=== PATIENT | female | born 1930 | race Caucasian/White ===

== ENCOUNTER 2017-02-07 20:20 | Emergency (ER) | payer OTHER, BC ==
[~2017-02-07] VITALS: Ht 165.1 cm; Wt 74.8 kg
[~2017-02-07 20:20] MED LIST: ACETAMINOPHEN325 M1 OR; ACID CONTROLLER10 MG PO; ALDACTONE25 MG PO; ALLEGRA ALLERG180 MG PO; ALPRAZOLAM 0.0.25 M1 PO; AMLODIPINE BESY10 MG PO; ATIVAN1 MG PO; BENICAR HCT 201 EACH PO; CENTRUM TABLET1 TAB OR; COLACE100 MG OR; COUMADIN 2.5MG2.5 M1 OR; COUMADIN 2.5MG2.5 M1 PO; COUMADIN 5 MG TA5 M1 PO; CRESTOR20 MG PO; DOXEPIN 25 MG C25 M1 PO; LEVOXYL50 MCG PO; LOSARTAN-HCTZ1 EACH OR; LOSARTAN-HCTZ1 EACH PO; MECLIZINE HCL12.5 MG OR; MULTIVITAMINS1 EAC7 PO; NITROSTAT0.4 MG SL; NORVASC10 MG PO; OCUVITE SOFTGE1 EAC1 PO; OPTIVE EYE DROP30 ML OP; SPIRONOLACTONE25 M1 PO; THERA TEARS15 ML OP; TOPROL XL50 MG PO; ZETIA10 MG PO
[2017-02-07] MEDS ORDERED: LISINOPRIL10 MG PO (20:36)
[2017-02-07] MEDS ORDERED: COUMADIN7.5 MG PO (20:37)
[2017-02-07] MEDS ORDERED: CARBAMAZEPINE200 M2 PO (20:39)
[2017-02-07] MEDS ORDERED: NEURONTIN 300300 M1 PO (20:39)
== END 2017-02-07 21:54 | disposition home or self-care (01) ==
LOC: ER 20:20
DX: F41.9 Anxiety disorder, unspecified (principal); I10 Essential (primary) hypertension; E11.22 Type 2 diabetes mellitus with diabetic chronic kidney disease; I13.0 Hypertensive heart and chronic kidney disease with heart failure and stage 1 through stage 4 chronic kidney disease, or unspecified chronic kidney disease; N18.3 Chronic kidney disease, stage 3 (moderate); I50.9 Heart failure, unspecified; I48.91 Unspecified atrial fibrillation; Z85.3 Personal history of malignant neoplasm of breast; K21.9 Gastro-esophageal reflux disease without esophagitis; Z90.49 Acquired absence of other specified parts of digestive tract; Z90.710 Acquired absence of both cervix and uterus; E78.5 Hyperlipidemia, unspecified; E03.9 Hypothyroidism, unspecified; Z96.653 Presence of artificial knee joint, bilateral; Z88.8 Allergy status to other drugs, medicaments and biological substances

== ENCOUNTER → 2017-04-14 | Outpatient (CLI) | payer OTHER, BC ==
[~2017-04-14] MED LIST changes: +CARBAMAZEPINE200 M2 PO; +COUMADIN7.5 MG PO; +LISINOPRIL10 MG PO; +NEURONTIN 300300 M1 PO
== END ==
LOC: RAD 03:03
DX: Z12.31 Encounter for screening mammogram for malignant neoplasm of breast (principal)

== ENCOUNTER → 2018-04-15 | Outpatient (CLI) | payer OTHER, BC ==
[~2018-04-15] MED LIST changes: +ANTIVERT25 MG PO; +ARTIFICIAL TEA1 EACH OPHTHALMIC; +CARBAMAZEPINE100 M2 PO; +CEFUROXIME250 MG PO; +HYDROCHLOROTH12.5 M1 PO; +LUTEIN20 M1 PO; +METOPROLOL TART25 MG PO; -TOPROL XL50 MG PO; +TYLENOL325 MG PO
== END ==
LOC: RAD 01:47
DX: Z12.31 Encounter for screening mammogram for malignant neoplasm of breast (principal)

== ENCOUNTER 2019-01-26 11:50 | Inpatient (IN) | payer OTHER, BC ==
[~2019-01-26] VITALS: Ht 165.1 cm; Wt 81.6 kg
[2019-01-26 11:52] VITALS: BP 211/100
[2019-01-26 12:25] LABS: BASOPHILS 0.6 % (0.0-2.0); EOSINOPHILS 1.1 % (0.0-3.0); HEMATOCRIT 40.4 % (37.0-47.0); HEMOGLOBIN 14.1 gm/dL (12.0-15.0); MCH 31.3 pg (26.0-34.0); MCHC 34.9 g/dL (28.0-37.0); MCV 89.6 fL (80.0-100.0); MONOCYTES 6.2 % (1.0-8.0); PLATELET COUNT 149 thou/uL (150-400); POLYS 84.1 % (36.0-66.0); RDW 13.9 % (10.5-14.5)
[2019-01-26 12:35] LABS: ANION GAP 9 mmol/L (7-16); BUN 23 mg/dL (7-18); CALCIUM 9.5 mg/dL (8.5-10.1); CHLORIDE 93 mmol/L (98-107); CO2 30 mmol/L (21-32); CREATININE 0.8 mg/dL (0.6-1.0); GLUCOSE 121 mg/dL (74-106); POTASSIUM 3.7 mmol/L (3.5-5.1); SODIUM 132 mmol/L (136-145)
[2019-01-26] MEDS ORDERED: CRESTOR10 MG PO (12:35)
[2019-01-26] MEDS ORDERED: XARELTO20 MG PO (12:36)
[2019-01-26] MEDS ORDERED: CELEXA10 MG PO (12:36)
[2019-01-26] MEDS ORDERED: XANAX 0.25 MG0.25 MG PO (12:37)
[2019-01-26] MEDS ORDERED: MAXZIDE-25 MG1 EACH PO (12:37)
[2019-01-26 12:40] LABS: ALBUMIN 4.3 g/dL (3.4-5.0); SALICYLATE < 2.8 mg/dL (2.8-20.0); SGOT 24 U/L (15-37); SGPT 27 U/L (30-65); TOTAL BILIRUBIN 0.3 mg/dL (<0.1-1.0); TOTAL PROTEIN 7.8 g/dL (6.4-8.2)
[2019-01-26 12:44] LABS: URINE BILIRUBIN NEGATIVE (Negative); URINE BLOOD NEGATIVE (Negative); URINE CLARITY CLEAR; URINE COLOR YELLOW; URINE GLUCOSE-RANDOM* NEGATIVE (Negative); URINE KETONES NEGATIVE (Negative); URINE LEUKOCYTES NEGATIVE (Negative); URINE NITRITE NEGATIVE (Negative); URINE PROTEIN (DIPSTICK) 1+ (Negative); URINE UROBILINOGEN 0.2 E.U./dl (0.2-1.0)
[2019-01-26 12:59] LABS: BACTERIA None Seen /HPF (None Seen); CASTS None Seen /LPF (None Seen); CRYSTALS None Seen /LPF (None Seen); SQUAMOUS 0-3 Few /LPF (0-3); URINE RBC None Seen /HPF (0-2); URINE WBC 0-5 Rare /HPF (0-5)
[2019-01-26 13:01] LABS: AMP/METHAMP Negative (Negative); BARBITURATES Negative (Negative); BENZODIAZEPINES POSITIVE (Negative); COCAINE Negative (Negative); METHADONE Negative (Negative); OPIATES Negative (Negative); PCP Negative (Negative)
[2019-01-26 15:23] VITALS: BP 220/116
[2019-01-26 16:28] VITALS: BP 201/89
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
[2019-01-26 20:54] VITALS: BP 186/98
[2019-01-26 23:00] VITALS: BP 160/89
--- NOTE | 2019-01-26 23:56 | NUR ---
Patient pleasant and cooperative this shift. Patient denies any SI/HI/AH/VH. Patient reports feeling depressed. Patient was worried about her medication regimen at the start of the shift. Medications ordered by MD were reviewed with her. Patient stated that she was prescribed Celexa and Alprazolam and she was worried that is what caused her to feel and think fuzzy. Spoke with patient about alternate coping skills other than medications. Patient appreciative and open to education. Patient took medications whole without difficulty. BP 186/98 at start of shift. Hydralazine 10mg PRN provided. 1.5 hours after administration, BP 160/89. Patient interacting well with other staff and peers. Patient has been sleeping quietly in her room.
--- NOTE | 2019-01-27 04:47 | NUR ---
Patient up at approximately 4am. Patient reports feeling anxious, some tremors to hands observed. Patient walking from room to day room several times. Patient asked for ordered medications. Patient fixated on ordered medications, why she took them, what she said that she had to have. Patient was given current medication list, provided education on each medication. Spoke 1:1 with patient providing alternate coping mechanisms. Patient appeared calmer after ordered medications were reviewed and what the plan of the day was on the unit.
[2019-01-27 07:12] VITALS: BP 193/110
--- NOTE | 2019-01-27 10:35 | NUR ---
ASSUMED PATIENT CARE AT 0700 A.M. UP AND AMBULATING AT THAT TIME. HAS BEEN COOPERATIVE AND COMPLIANT. AFFECT, CALM, MOOD PLEASANT, NO BEHAVIORS AT THIS TIME. CONTINUE TO MONITOR.
[2019-01-27 19:33] VITALS: BP 169/93
--- NOTE | 2019-01-27 22:07 | NUR ---
Pt interacting with female peers in day room. Had hs snack. Requested and compliant with medications. No verbalizations regarding anxiety or depression. Blunted affect noted.
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
--- NOTE | 2019-01-28 04:19 | NUR ---
Pt awakened at 0400 requesting activities to keep her mind busy. Pt ambulated in the currie and then was provided paper and pencil to draw. Discussed watching TV at 0500.
[2019-01-28 05:19] VITALS: BP 140/80
--- NOTE | 2019-01-28 05:19 | NUR ---
Pt asked for bp to be checked. R arm sitting manual 140/80. Pt reported this is the lowest it has been since her arrival and it resembles her home reading. Pt stated she is concerned now that her bp will drop to fast and make her dizzy or fall.
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
[2019-01-28 07:45] VITALS: BP 179/106
--- NOTE | 2019-01-28 13:00 | NUR ---
CALM. COOPERATIVE. CONVERSANT.
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
--- NOTE | 2019-01-28 19:33 | NUR ---
Pt has allergy to clonidine discussed reaction with pt. She stated in her younger years when she had elevated bp she would go to the ED and get shots of clonidine every 2 to 3 months. Then she was started on po form and she developed a rash. Ma[place] contacted regarding allergy and pt receiving 2 doses. Medication will be held and day DR daniels is to address tomorrow.
[2019-01-28 19:38] VITALS: BP 149/73
--- NOTE | 2019-01-28 21:55 | NUR ---
Pt along with peers worked on puzzle in day room and had snack. Blunted affect, verbalized concern regarding peers disorientation to room. Pt requested use of tablet for music or [employer] game. Will have dayshift f/u regarding use of unit tablet. Compliant with medications. No verbalizations regarding self harm.
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
[2019-01-29 07:30] VITALS: BP 187/85
--- NOTE | 2019-01-29 09:49 | NUR ---
ASSUMED CARE AT 0715 TODAY. PT. AWAKE, DRESSED AND ON THE UNIT. SHE IS PLEASANT AND COOPERATIVE WITH STAFF. SHE CAME TO THE NURSES STATION AND ATTEMPTED TO CALL HER MANAGER WASTEWATER AT 0930. SHE WAS INFORMED HE PROBABLY WOULD BE PREACHING TODAY. SHE SAID SHE'D CALL HIS OFFICE AND LEAVE A MESSAGE. SHE DID SO. SHE ALSO C/O VERTIGO THIS MORNING. I ADVISED HER TO RELAX AND SIT DOWN IF SHE IS LIGHT HEADED.
[2019-01-29 19:50] VITALS: BP 159/68
--- NOTE | 2019-01-30 03:36 | NUR ---
Patient alert and oriented x4. Patient denies any SI/HI/AH/VH. Patient reports some anxiety and depression that comes and goes. Patient interacting well with staff and peers watching TV and putting together a puzzle. Patient ate PM snack and took medications well. Patient reports that she is trying to be less obsessive with her medication regimen and wants to allow the doctors to do their job, but it is hard. Patient has petechiae to bilateral lower extremities, will pass on in report to monitor. Resident has been up once through the night to wander the halls, look at the TV, look at the time, then went back to bed. Resident re-orientated at that time with success. Resident has otherwise appeared to have slept well at this time.
--- NOTE | 2019-01-30 09:00 | NUR ---
PT AWAKE IN GOOD SPIRITS. PT ATE BREAKFAST AND TOOK AM MEDS. PT EXCITED ABOUT GETTING HOME TODAY.
[2019-01-30] MEDS ORDERED: CARVEDILOL12.5 MG PO (09:31)
[2019-01-30] MEDS ORDERED: SEROQUEL 25 MG25 M1 PO (09:32)
--- NOTE | 2019-01-30 12:30 | NUR ---
GOING OVER MEDS THAT PT TAKES AT HOME. PT HAS A LIST OF MEDS THAT SHE HAD. WILL CLARIFY MEDS FOR DISCHARGE. TALKED TO DR. PITTMAN AND STATED ONLY BP MED FOR HERE AT THIS TIME IS WHAT IS ORDERED.
[2019-01-30 12:35] VITALS: BP 169/92
[2019-01-30 15:34] VITALS: BP 169/92
--- NOTE | 2019-01-30 15:35 | NUR ---
Patient Name: SHANNA POWELL Admission Date: 01/26/19 DISCHARGE PLAN: Pt will be discharge to her home. Care Assessment: Pt was assessed by Dr. Fuller, and was diagnosed with Severe Major Depression. Level II Assessment: None Transportation: Pt will be discharge by [facility] Special Instructions/Notes: schedule pt to [facility]. Pt has appointment on February 09, 2019. At 10:30am. DISCHARGE TO FACILITY: Facility: Phone: Fax: Address: Contact Name: Phone: PCP: [facility] Psychiatrist:
--- NOTE | 2019-01-30 16:00 | NUR ---
WENT OVER MED LIST AND PERSONAL BELONGINGS OVER WITH PATIENT. PT UNDERSTOOD D/C ORDERS. PT GETTING NEW MEDS FILLED AT PHARMACY IN HOUSE. PT LEAVING VIA CAB TO HOME.
--- NOTE | 2019-02-01 09:22 | D ---
[facility] [place] [address] DISCHARGE SUMMARY Name: LITTLE ORLEANSSHANNA Room #: 525B [facility] IN M.R.#: [id number] Admission: 01/26/19 ������������������ Attend Phys: Phi Fuller DO Discharge: 01/30/19 ������������������ Date of : 30 Report #: [id number] THIS REPORT FOR: //name// CC: Phi Frye DATE OF SERVICE: 01/30/2019 ATTENDING PHYSICIAN: Phi Fuller DO ACCOUNTING LECTURER: Phi Lai M.D. DISCHARGE DIAGNOSES: Unspecified depressive disorder, resolved. Anxiety disorder, unspecified secondary to psychiatric diagnoses; suicidal ideation, resolved; severe hypertension, much improved; congestive heart failure, compensated; history of atrial fibrillation; chronic kidney disease stage 3; diet controlled diabetic. DISCHARGE PLAN: Discharged home. Activity level as tolerated. No alcohol, no illicit drugs, no smoking. DISCHARGE MEDICATIONS: Coreg 12.5 mg p.o. b.i.d. with meals for hypertension and rate control, Seroquel 12.5 mg p.o. t.i.d. for anxiety at 0900, 1500 and 1700. Medications to continue levothyroxine 50 mcg p.o. daily, famotidine 20 mg p.o. for GERD and hypothyroidism. Carbamazepine 200 mg p.o. b.i.d. for trigeminal neuralgia, simvastatin 10 mg p.o. daily, rivaroxaban 20 mg p.o. daily with dinner, triamterene/hydrochlorothiazide hospitalist advised not to continue that, also citalopram was discontinued. REASON FOR ADMISSION: As follows, 88-year-old female presented to ED with suicidal ideation starting last night. She was started on a half dose of Celexa 1-1/2 weeks ago and apparently she became more suicidal on this. HOSPITAL COURSE: The patient was admitted to geriatric psychiatric unit and I decided discontinue Celexa, tapered her off alprazolam, started her on Seroquel. The patient improved. Recommended [facility] for her as [facility]. Labs and vital signs at time of admission CBC grossly normal except platelet count 149,000. Chemistries within normal limits. GFR is 68. Glucose 121, AST 24, ALT 27, alkaline phosphatase 101, total protein 7.8, albumin 4.3. TSH 0.663. Sodium was 132 on admission. UDS is positive for benzodiazepines. Alcohol was negative. Acetaminophen negative. Salicylate less than 2. Urinalysis showed 1+ protein, otherwise clean. [facility] [address] [place] [address] DISCHARGE SUMMARY Name: [facility] Room #: [facility] IN .R.#: [id number] Admission: 01/26/19 ������������������ Attend Phys: Phi Fuller, Discharge: 01/30/19 ������������������ Date of : 30 Report #: [id number] PHYSICAL EXAMINATION: VITAL SIGNS: On the day of discharge, temperature 36.5, pulse 54, respirations 18, BP 169/92. DISPOSITION: The patient will need a follow up with her photographic artist, Dr. Saxena within 2 weeks, she is aware of those. MENTAL STATUS EXAMINATION: Well-developed, well-nourished female appearing stated age. Attention limited. Concentration limited. Speech normal rate, rhythm and tone. Thought process linear and goal directed. Thought content focused on discharge. Mood and affect appear euthymic, broad range. Denied auditory or visual type hallucination. Not suicidal intent or plan. Denied hopelessness or helplessness. Denied homicidal intent or plan. Memory not formally tested today, SLUMS early in hospitalization. Insight limited. Judgment fair. Fund of knowledge at least average. Prognosis for this patient is fair. She is to maintain general, medical, psychiatric care. Maintain blood pressure control. ��������������������������������������������� <ELECTRONICALLY SIGNED> ���������������������������������������� By: Phi Fuller DO ��������������������������������������������� 02/01/19 0922 [id number] Phi Fuller, /nt
== END 2019-01-30 16:28 | disposition home or self-care (01) | DRG 885 ==
LOC: ER 11:50 → SBH 14:04 → EROBS 14:04 → SBH 14:04
PROVIDERS: Physician Assistant; ADMIT Psychiatry & Neurology Psychiatry
DX: F32.3 Major depressive disorder, single episode, severe with psychotic features (principal); R45.851 Suicidal ideations; I13.0 Hypertensive heart and chronic kidney disease with heart failure and stage 1 through stage 4 chronic kidney disease, or unspecified chronic kidney disease; I50.9 Heart failure, unspecified; I48.91 Unspecified atrial fibrillation; N18.3 Chronic kidney disease, stage 3 (moderate); E11.22 Type 2 diabetes mellitus with diabetic chronic kidney disease; K21.9 Gastro-esophageal reflux disease without esophagitis; F41.0 Panic disorder [episodic paroxysmal anxiety]; M79.7 Fibromyalgia; E78.00 Pure hypercholesterolemia, unspecified; I16.0 Hypertensive urgency; E03.9 Hypothyroidism, unspecified; Z96.653 Presence of artificial knee joint, bilateral; Z96.1 Presence of intraocular lens; Z87.828 Personal history of other (healed) physical injury and trauma; Z85.3 Personal history of malignant neoplasm of breast; Z95.810 Presence of automatic (implantable) cardiac defibrillator; Z90.49 Acquired absence of other specified parts of digestive tract; Z98.42 Cataract extraction status, left eye; Z98.41 Cataract extraction status, right eye; Z79.01 Long term (current) use of anticoagulants; Z79.899 Other long term (current) drug therapy; Z88.8 Allergy status to other drugs, medicaments and biological substances
CPT/HCPCS: 10880

== ENCOUNTER → 2019-07-07 | Outpatient (CLI) | payer OTHER, BC ==
[~2019-07-07] MED LIST changes: +CARVEDILOL12.5 MG PO; +CELEXA10 MG PO; +CRESTOR10 MG PO; +MAXZIDE-25 MG1 EACH PO; +SEROQUEL 25 MG25 M1 PO; +XANAX 0.25 MG0.25 MG PO; +XARELTO20 MG PO
== END ==
LOC: RAD 10:26
DX: Z12.31 Encounter for screening mammogram for malignant neoplasm of breast (principal)

== ENCOUNTER → 2019-12-19 | Outpatient (CLI) | payer OTHER, BC ==
[~2019-12-19] MED LIST changes: +AMOXICILLIN875 MG PO; +XARELTO10 MG PO
== END ==
LOC: SJCVC 13:31
PROVIDERS: ATTEND Internal Medicine Cardiovascular Disease
DX: R94.31 Abnormal electrocardiogram [ECG] [EKG] (principal); I48.21 Permanent atrial fibrillation; I25.10 Atherosclerotic heart disease of native coronary artery without angina pectoris; I10 Essential (primary) hypertension; D68.59 Other primary thrombophilia; I87.2 Venous insufficiency (chronic) (peripheral); I35.0 Nonrheumatic aortic (valve) stenosis; E78.00 Pure hypercholesterolemia, unspecified; E03.9 Hypothyroidism, unspecified; Z90.49 Acquired absence of other specified parts of digestive tract; Z90.710 Acquired absence of both cervix and uterus; Z79.899 Other long term (current) drug therapy

== ENCOUNTER 2020-03-16 07:22 | Emergency (ER) | payer OTHER, BC ==
[~2020-03-16] VITALS: Ht 165.1 cm; Wt 83.9 kg
--- NOTE | ~2020-03-16 | EMS ---
[address] [address] EMS Patient Care Report Name: SHANNA POWELL Room #: PRE M.R.#: [id number] Admission: Attend Phys: Discharge: Date of : 30 Report #: [id number] THIS REPORT FOR: //name// Report Transmitted: 03/16/2020 07:01 EMS Care Summary [place], [place]/[facility] Incident [id number] @ 03/16/2020 06:43 Incident Location [id number] [place] [address] Patient SHANNA SHERRY Female, 89 Years 1930 Patient Address [address] [place] [address] Patient History Congestive Heart Failure (CHF),Hypertension (HTN),Atrial Fibrillation, Patient Allergies No known allergies, Patient Medications Amlodipine, Xarelto, Meclizine, Carvedilol, Chief Complaint BLOODY NOSE Disposition Transported No Lights/[place] Dispatch Reason Hemorrhage/Laceration Transported To [facility] Narrative M42 WAS DISPATCHED AFTER BEING REQUEST BY P42 WHO WAS ON A MEDICAL ALARM. UPON ARRIVAL M42 MET P42 [facility]. P42 REPORTED PT WOKE UP AN HOUR PRIOR WITH A BLOODY NOSE AND IT HAD NOT STOPPED BLEEDING SINCE. PT WAS ON BLOOD [facility] [address] [place] [address] EMS Patient Care Report Name: SHANNA POWELL Room #: PRE Beck#: [id number] Admission: Attend Phys: Discharge: Date of : 30 Report #: [id number] YING. UPON INSPECTION PT LOOOKED LIKE THE BLEEDING WAS BEGINNING TO CLOT BUT WAS SYILL BLEEDING. PT WAS TOLD TO CONTINUE TO HOLD PRESSURE. PT DENIED ANY RECENT TRAUMA. PT DENIED PAIN OR WEAKNESS OF ANY KIND. PT WAS MOVED TO THE STRETCHER AND PLACED IN THE AMBULANCE. FURTHER ASSESSMENT REVEALED THE PT TO BE IN AFIB. PT WS HYPERTENSIVE. IV ACCES WAS GRANTED. PT INFORMED EMS SHE HAD NOT EATEN OR DRANK ANYTHING YET THIS MORNING AND HAD NOT TAKEN ANY OF HER MEDICATIONS SINCE 6 PM THE NIGHT BEFORE. PT WAS TRANSPORTED WHILE SHE HELD PRESSURE AND MONITORED ENROUTE. PT WAS TRANSFERRED TO HOSPITAL STAFF WITH A REPORT. EMS RETURNED TO SERVICE. Initial Vitals @06:56P: 90,R: 16,BP: 217/127,Pain: 0/10,GCS: 15,Glucose: 129,SpO2: 91,Revised Trauma: 12, @07:03P: 80,R: 16,BP: 214/134,Pain: 0/10,GCS: 15,SpO2: 86,Revised Trauma: 12,DE Suspected: false @07:01P: 89,R: 16,Pain: 0/10,GCS: 15,SpO2: 88,DE Suspected: false Assessments @06:50MENTAL:Person Oriented,Time Oriented,Event Oriented,Place Oriented,SKIN:HEENT:Head/Face: Other,Eyes: No Abnormalities,Neck/Airway: No Abnormalities,LUNG SOUNDS:General: No Abnormalities,Left Upper: No Abnormalities,Right Upper: No Abnormalities,Left Lower: No Abnormalities,Right Lower: No Abnormalities,ABDOMEN:General: No Abnormalities,Left Upper: No Abnormalities,Right Upper: No Abnormalities,Left Lower: No Abnormalities,Right Lower: No Abnormalities,PELVIS//GI:No Abnormalities,EXTREMITIES:Left Arm: No Abnormalities,Right Arm: No Abnormalities,Left Leg: No Abnormalities,Right Leg: No Abnormalities,PULSE:Radial: 2+ Normal,NEURO:No Abnormalities, Impression Hemorrhage Procedures @06:50ALS AssessmentResponse: UnchangedSucceeded@07:0112-Lead ECGResponse: UnchangedSucceeded@07:02Saline Lock 5cc (18 ga) Site: Antecubital-RightResponse: UnchangedSucceeded Timeline 06:32,Call Received 06:32,Dispatch Notified 06:43,Dispatched 06:44,En Route 06:47,On Scene 06:50,At Patient 06:50,ALS Assessment,Response: UnchangedSucceeded, 06:56,BP: 217/127 M,PULSE: 90,RR: 16 R,SPO2: 91 Ox,ETCO2: ,B,PAIN: 0,GCS: 15, [address] [address] EMS Patient Care Report Name: [facility] Room #: PRE ER M.R.#: [id number] Admission: Attend Phys: Discharge: Date of : 30 Report #: [id number] 07:01,12-Lead ECG,Response: UnchangedSucceeded, 07:01,BP: / M,PULSE: 89,RR: 16 R,SPO2: 88 Ox,ETCO2: ,BG: ,PAIN: 0,GCS: 15, 07:02,Saline Lock 5cc 18 ga Site: Antecubital-Right,Response: UnchangedSucceeded, 07:03,BP: 214/134 M,PULSE: 80,RR: 16 R,SPO2: 86 Ox,ETCO2: ,BG: ,PAIN: 0,GCS: 15, 07:08,Depart Scene 07:18,At Destination 07:33,Call Closed Disclaimer v1.1 Copyright 2020 [facility] This EMS Care Summary contains data elements from the applicable legal record (which may be displayed differently). It is designed to provide pertinent information for the following purposes: continuity of care, clinical quality, and state data reporting. The complete legal record is available to ED staff and administrators of the receiving hospital in [employer]'s Patient Tracker. All data is provided "as is."
[~2020-03-16 07:22] MED LIST changes: -AMOXICILLIN875 MG PO; -XARELTO10 MG PO
[2020-03-16 07:56] LABS: HEMATOCRIT 37.6 % (37.0-47.0); HEMOGLOBIN 12.5 gm/dL (12.0-15.0); MCH 30.5 pg (26.0-34.0); MCHC 33.2 g/dL (28.0-37.0); MCV 91.9 fL (80.0-100.0); RBC 4.1 mil/uL (4.20-5.00); RDW 13.8 % (10.5-14.5); WBC 4.7 thou/uL (4.0-11.0)
[2020-03-16 08:18] LABS: INR 1.2; PROTIME 12.7 Seconds (9.3-11.4)
[2020-03-16] MEDS ORDERED: AMOXICILLIN875 MG PO ×2 (09:23→12:27)
[2020-03-16 09:50] VITALS: BP 151/84
[2020-03-17] MEDS ORDERED: XARELTO10 MG PO (22:26)
== END 2020-03-16 09:50 | disposition home or self-care (01) ==
LOC: ER 07:22
PROVIDERS: Emergency Medicine
DX: R04.0 Epistaxis (principal); E11.22 Type 2 diabetes mellitus with diabetic chronic kidney disease; I13.0 Hypertensive heart and chronic kidney disease with heart failure and stage 1 through stage 4 chronic kidney disease, or unspecified chronic kidney disease; N18.3 Chronic kidney disease, stage 3 (moderate); I50.9 Heart failure, unspecified; I48.91 Unspecified atrial fibrillation; M79.7 Fibromyalgia; E78.00 Pure hypercholesterolemia, unspecified; E03.9 Hypothyroidism, unspecified; Z96.651 Presence of right artificial knee joint; Z96.652 Presence of left artificial knee joint; Z85.3 Personal history of malignant neoplasm of breast; Z90.49 Acquired absence of other specified parts of digestive tract; Z79.899 Other long term (current) drug therapy; Z88.8 Allergy status to other drugs, medicaments and biological substances; Z79.01 Long term (current) use of anticoagulants

== ENCOUNTER 2020-03-17 20:57 | Emergency (ER) | payer OTHER, BC ==
[~2020-03-17] VITALS: Ht 154.9 cm; Wt 83.9 kg
[~2020-03-17 20:57] MED LIST changes: +AMOXICILLIN875 MG PO
[2020-03-17] MEDS ORDERED: XARELTO10 MG PO (22:26)
[2020-03-17 23:44] VITALS: BP 175/85
== END 2020-03-17 23:47 | disposition home or self-care (01) ==
LOC: ER 20:57
DX: R04.0 Epistaxis (principal); I48.91 Unspecified atrial fibrillation; E78.5 Hyperlipidemia, unspecified; E03.9 Hypothyroidism, unspecified; I13.0 Hypertensive heart and chronic kidney disease with heart failure and stage 1 through stage 4 chronic kidney disease, or unspecified chronic kidney disease; N18.3 Chronic kidney disease, stage 3 (moderate); I50.9 Heart failure, unspecified; Z90.710 Acquired absence of both cervix and uterus; Z87.891 Personal history of nicotine dependence; Z79.899 Other long term (current) drug therapy; Z79.2 Long term (current) use of antibiotics; Z88.8 Allergy status to other drugs, medicaments and biological substances

== ENCOUNTER 2020-07-09 10:27 | Inpatient (IN) | payer OTHER, BC ==
[~2020-07-09] VITALS: Ht 165.1 cm; Wt 82.6 kg
[2020-07-09] VITALS (7 sets, daily range): BP systolic 176–220; BP diastolic 77–109
[~2020-07-09 10:27] MED LIST changes: +XARELTO10 MG PO
[2020-07-09 10:56] LABS: ABSOLUTE NEUTROPHILS 6.1 thou/uL (1.4-8.2); BASOPHILS 0.4 % (0.0-2.0); EOSINOPHILS 1.4 % (0.0-3.0); HEMATOCRIT 36.6 % (37.0-47.0); HEMOGLOBIN 12.1 gm/dL (12.0-15.0); LYMPHOCYTES 8.3 % (24.0-44.0); MCH 28.9 pg (26.0-34.0); MCV 87.6 fL (80.0-100.0); MONOCYTES 4.5 % (1.0-8.0); PLATELET COUNT 157 thou/uL (150-400); POLYS 85.4 % (36.0-66.0); RBC 4.18 mil/uL (4.20-5.00); RDW 15.2 % (10.5-14.5); WBC 7.1 thou/uL (4.0-11.0)
--- NOTE | 2020-07-09 10:57 | EKG ---
[facility] [place] [address] [place] [address] ELECTROCARDIOGRAM REPORT Name: DALILA POWELLRED Room #: PRE M.R.#: [id number] Admission: Attend Phys: Discharge: Date of : 30 Report #: [id number] THIS REPORT FOR: cc: Travis Frye MD, Eric K. MD Santiago, Patrick MD [facility] ~ THIS REPORT FOR: //name// [facility] ED Test Date: 2020-07-09 Test Time: 10:51:30 Pat Name: SHANNA POWELL Department: Room: Gender: F Lead Applications Developer: vance : 1930 Requested By: Curly Fairchild Order Number: [id number] MD: Flaco Oseguera Measurements Intervals Oden Rate: 71 P: FL: QRS: -34 QRSD: 108 T: -14 QT: 494 QTc: 537 Interpretive Statements Atrial fibrillation Left axis deviation Anteroseptal infarct, age indeterminate Compared to ECG 12/29/2017 14:43:12 Poor R-wave progression no longer present ST (T wave) deviation no longer present Electronically Signed On 07-09-2020 10:57:40 CDT by Flaco Oseguera [email or web address] <ELECTRONICALLY SIGNED> By: Flaco Oseguera MD, FACC 07/09/20 1057 [id number] Flaco Oseguera MD, [facility] /EPI
[2020-07-09 11:20] LABS: ANION GAP 4 mmol/L (7-16); BUN 20 mg/dL (7-18); CALCIUM 8.8 mg/dL (8.5-10.1); CHLORIDE 95 mmol/L (98-107); CO2 36 mmol/L (21-32); CREATININE 1.1 mg/dL (0.6-1.0); GLUCOSE 166 mg/dL (74-106); MAGNESIUM 1.5 mg/dL (1.8-2.4); SGOT 31 U/L (15-37); SGPT 28 U/L (30-65); SODIUM 135 mmol/L (136-145); TOTAL BILIRUBIN 0.5 mg/dL (0.2-1.0); TROPONIN-I <0.06 ng/mL (<0.06)
[2020-07-09 11:23] LABS: POTASSIUM 2.3 mmol/L (3.5-5.1)
[2020-07-09 11:38] LABS: URINE BILIRUBIN NEGATIVE (Negative); URINE BLOOD NEGATIVE (Negative); URINE CLARITY CLEAR; URINE COLOR YELLOW; URINE GLUCOSE-RANDOM* NEGATIVE (Negative); URINE KETONES NEGATIVE (Negative); URINE LEUKOCYTES-REFLEX NEGATIVE (Negative); URINE NITRITE-REFLEX NEGATIVE (Negative); URINE PROTEIN (DIPSTICK) TRACE (Negative); URINE SPECIFIC GRAVITY 1.015 (1.005-1.035); URINE UROBILINOGEN 0.2 E.U./dl (0.2-1.0)
[2020-07-09] MEDS ORDERED: NEURONTIN300 MG PO (11:56)
[2020-07-09] MEDS ORDERED: EYE HEALTH ADU1 EACH PO (11:57)
[2020-07-09] MEDS ORDERED: ACIDOPHILUS CA1 EACH PO (11:57)
[2020-07-09] MEDS ORDERED: MULTI FOR HER1 EAC2 PO (11:57)
[2020-07-09] MEDS ORDERED: EDARBYCLOR 40-1 EAC1 PO (11:58)
[2020-07-09] MEDS ORDERED: CLONAZEPAM 0.50.5 M1 PO (11:58)
[2020-07-09] MEDS ORDERED: MAPAP500 MG PO (11:59)
[2020-07-09] MEDS ORDERED: CARVEDILOL12.5 MG PO (12:24)
[2020-07-09] MEDS ORDERED: MECLIZINE HCL25 M1 PO (12:25)
[2020-07-09 13:00] LABS: ALBUMIN 4.1 g/dL (3.4-5.0); TOTAL PROTEIN 7.5 g/dL (6.4-8.2)
[2020-07-09 13:26] LABS: TSH 0.272 uIU/mL (0.358-3.740)
[2020-07-10 00:34] VITALS: BP 145/82
[2020-07-10 04:05] VITALS: BP 162/74
--- NOTE | 2020-07-10 05:48 | NUR ---
ASSUMED CARE FROM DAY SHIFT PT ALERT AND ORIENTED X4 , ASSISTED TO BATHROOM , TOLERATED WELL DIZZINESS COMES AND GOES STATED BY PATIENT. BP STABLE, C/O NECK PAIN DURING THE NIGHT , TYLENOL GIVEN. PT RESTED THE REST OF THE NIGHT UP IN CHAIR. WILL CONITNUE WITH CURRENT PLAN OF CARE AND WILL REPORT CHANGES.
[2020-07-10 06:02] LABS: HEMATOCRIT 33.1 % (37.0-47.0); HEMOGLOBIN 11.1 gm/dL (12.0-15.0); MCH 29.4 pg (26.0-34.0); MCHC 33.4 g/dL (28.0-37.0); MCV 87.8 fL (80.0-100.0); RBC 3.77 mil/uL (4.20-5.00); RDW 15.2 % (10.5-14.5); WBC 5.7 thou/uL (4.0-11.0)
[2020-07-10 06:27] LABS: CALCIUM 8.6 mg/dL (8.5-10.1); CREATININE 0.9 mg/dL (0.6-1.0); MAGNESIUM 1.7 mg/dL (1.8-2.4)
[2020-07-10 06:57] LABS: POTASSIUM 2.5 mmol/L (3.5-5.1)
--- NOTE | 2020-07-10 07:41 | EKG ---
[facility] [place] [address] [place] [address] ELECTROCARDIOGRAM REPORT Name: DALILA POWELLRED Room #: 214-P ADM IN M.R.#: [id number] Admission: 07/09/20 Attend Phys: Denver Giles MD Discharge: Date of : 30 Report #: [id number] THIS REPORT FOR: cc: Travis Frye MD, Eric K. MD Lundgren,Sean Mak MD [facility] ~ THIS REPORT FOR: //name// [facility] ED Test Date: 2020-07-09 Test Time: 12:04:53 Pat Name: SHANNA POWELL Department: Room: 214 Gender: F Roll Filler: MITESH : 1930 Requested By: Curly Fairchild Order Number: [id number] MD: Sean Cruz Measurements Intervals [place] Rate: 64 P: RI: QRS: -40 QRSD: 106 T: 2 QT: 496 QTc: 512 Interpretive Statements Atrial fibrillation Left axis deviation Poor R wave progression Prolonged QT interval Compared to ECG 07/09/2020 10:51:30 No significant change was found Electronically Signed On 07-10-2020 7:41:09 CDT by Sean Cruz [email or web address] <ELECTRONICALLY SIGNED> By: eSan Cruz MD, [facility] 07/10/20 0741 1204 1204 Sean Cruz MD, [facility] /EPI
[2020-07-10 07:58] VITALS: BP 192/113
--- NOTE | 2020-07-10 09:06 | 2DMMODE ---
[facility] [place] [address] 2 D/M-MODE ECHOCARDIOGRAM Name: DALILA POWELLRED Room #: 214-P ADM IN M.R.#: [id number] Admission: 07/09/20 Attend Phys: Denver Giles MD Discharge: Date of : 30 Report #: [id number] THIS REPORT FOR: cc: Travis Frye MD, Eric K. MD Santiago, Patrick MD [facility] ~ APPROVED REPORT Study performed: 07/10/2020 08:03:49 EXAM: Comprehensive 2D, Doppler, and color-flow Echocardiogram Patient Location: Bedside Room #: 214 Status: routine BSA: 1.89 HR: 68 bpm BP: 191/113 mmHg Rhythm: Atrial Fibrillation Other Information Study Quality: Good Indications Afib with RVR, congestion. HTN urgency. Hx: Afib, HTN, HLP. 2D Dimensions RVDd: 41.25 mm IVSd: 14.41 (7-11mm) LVOT Diam: 20.35 (18-24mm) LVDd: 45.73 mm PWd: 13.08 (7-11mm) Ascending Ao: 33.37 (22-36mm) LVDs: 29.70 (25-40mm) Aortic Root: 39.25 mm Volumes Left Atrial Volume (Systole) Single Plane 4CH: 107.68 mL Single Plane 2CH: 96.74 mL LA ESV Index: 57.00 mL/m2 Aortic Valve AoV Peak Cm.: 2.03 m/s AO Peak Gr.: 8.77 mmHg LVOT Max P.56 mmHg AO Mean Gr.: 9.06 mmHg AO V2 Mean: 1.44 m/s LVOT Max V: 0.79 m/s [facility] [address] [place] [address] 2 D/M-MODE ECHOCARDIOGRAM Name: [facility] Room #: [address] [place] [address] [place] [facility]#: [id number] Admission: 07/09/20 Attend Phys: Denver Giles, Discharge: Date of : 30 Report #: [id number] AO V2 VTI: 49.16 cm BRIEN Vmax: 1.26 cm2 Mitral Valve MV Decel. Time: 145.18 ms MV E Max Cm.: 1.17 m/s Pulmonary Valve PV Peak Cm.: 0.70 m/s PV Peak Gr.: 1.98 mmHg Tricuspid Valve TR Peak Cm.: 4.10 m/s RAP Estimate: 15.00 mmHg TR Peak Gr.: 67.00 mmHg PA Pressure: 82.00 mmHg Left Ventricle The left ventricle is normal size. There is normal LV segmental wall motion. Mild concentric left ventricular hypertrophy. Left ventricular systolic function is normal. LVEF is 55%. This study is not technically sufficient to allow evaluation of the LV diastolic function due to atrial fibrillation. Right Ventricle Right ventricle is mildly dilated. Right ventricle is mildly hypokinetic. Atria Severe biatrial enlargement. Aortic Valve Aortic valve leaflets are thickened and calcified. No aortic regurgitation is present. There is mild valvular aortic stenosis. Calculated aortic valve area is 1.5 cm2 with maximum pressure gradient of 17 mmHg and mean pressure gradient of 9 mmHg. Mitral Valve Mitral valve leaflets are mildly thickened. Moderate mitral regurgitation. Tricuspid Valve The tricuspid valve is normal in structure. Moderate to severe tricuspid regurgitation. Estimated PAP is 75-80mmHg. Pulmonic Valve Pulmonic valve is not well visualized. Mild pulmonic regurgitation. [facility] [address] [place] [address] 2 D/M-MODE ECHOCARDIOGRAM Name: [facility] Room #: 214-P [facility] IN .R.#: [id number] Admission: 07/09/20 Attend Phys: Denver Giles, Discharge: Date of : 30 Report #: [id number] Great Vessels Aortic root is mildly dilated. (3.9cm) The ascending aorta is normal in size. IVC is dilated and collapses <50% with inspiration. Pericardium Small pericardial effusion. 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
[2020-07-10 11:37] LABS: CALCIUM 9.3 mg/dL (8.5-10.1); CREATININE 0.8 mg/dL (0.6-1.0)
[2020-07-10 11:44] VITALS: BP 176/99
[2020-07-10 16:17] VITALS: BP 140/70
--- NOTE | 2020-07-10 17:33 | NUR ---
Met with patient who resides in [facility]. She needs a new walker. requested provider plus issue one at [facility]. She has a friend who assists with groceries delivery. She reports independent with adls and self care. She does not believe she needs care. She reports she spends hours outside gardening. PCP Dr Jan Frye.
--- NOTE | 2020-07-10 19:39 | NUR ---
ASSUMED CARE AT SHIFT CHANGE, ALERT AND ORIENTED X4 AND FORGETFUL. BP ELEVATED THROUGH THE DAY AND MEDS ADJUSTED BY DR SPRING. K+ REPLACED PER ORDERS AND RECHECKED PER PROTOCOL. ANXIOUS AND SHE WAS MEDICATED, PATIENT CALMER AND REPORTED LESS ANXIETY. WILL CONTIUE TO MONITOR BP AND FOLLOW POC.
[2020-07-10 20:15] VITALS: BP 181/101
[2020-07-11 03:30] VITALS: BP 120/65
[2020-07-11 05:56] LABS: HEMOGLOBIN 11.9 gm/dL (12.0-15.0); MCHC 33.1 g/dL (28.0-37.0); MCV 87.7 fL (80.0-100.0); RBC 4.11 mil/uL (4.20-5.00); RDW 15.6 % (10.5-14.5); WBC 7.2 thou/uL (4.0-11.0)
[2020-07-11 06:04] LABS: CALCIUM 9.1 mg/dL (8.5-10.1); CREATININE 0.9 mg/dL (0.6-1.0); MAGNESIUM 1.5 mg/dL (1.8-2.4)
[2020-07-11 06:08] LABS: POTASSIUM 2.5 mmol/L (3.5-5.1)
[2020-07-11 07:30] VITALS: BP 151/78
[2020-07-11 12:00] VITALS: BP 130/63
[2020-07-11 13:54] VITALS: BP 130/63
--- NOTE | 2020-07-11 13:55 | NUR ---
Pt dcing home this afternoon once K+ replaced. Cab voucher provided as the pt does not have a ride. Rwalker ordered and issued to the pt per [facility] [employer] liason for home use. Script given to the liason. No other dc planning needs indicated.
[2020-07-11 16:30] VITALS: BP 136/52
--- NOTE | 2020-07-11 18:12 | NUR ---
ASSUMED CARE AT SHIFT CHANGE, ASSESSMENT DOCUMENTED, AFIB AND BARYCADIAC WHEN SLEEP AND OTHER VSS. K+ AND LORENA REPLACED. SLEPT IN THE CHAIR MOST OF DAY. PROGRESSING TO WARDS GOALS AND WILL CONTINUE WITH POC.
[2020-07-11 20:30] VITALS: BP 144/60
--- NOTE | 2020-07-12 04:16 | NUR ---
ASSESSMENT DOCUMENTED.PT BEEN RESTING IN NO ACUTE DISTRESS.A/OX4.VSS.PT DENIES ANY NEEDS.ANTICIPATING DISCHARGE TO HOME TODAY.WILL CONT TO MONITOR PER POC.
[2020-07-12 04:45] VITALS: BP 135/49
[2020-07-12 06:02] LABS: CALCIUM 8.5 mg/dL (8.5-10.1); CREATININE 1.1 mg/dL (0.6-1.0); MAGNESIUM 1.9 mg/dL (1.8-2.4); POTASSIUM 3.4 mmol/L (3.5-5.1)
[2020-07-12 06:04] LABS: HEMATOCRIT 32.9 % (37.0-47.0); HEMOGLOBIN 10.9 gm/dL (12.0-15.0); MCH 29.2 pg (26.0-34.0); MCV 88.5 fL (80.0-100.0); RBC 3.72 mil/uL (4.20-5.00); RDW 15.7 % (10.5-14.5); WBC 4.7 thou/uL (4.0-11.0)
[2020-07-12] MEDS ORDERED: K-DUR 20 MEQ T20 MEQ PO (07:58)
[2020-07-12] MEDS ORDERED: NORVASC5 MG PO (07:58)
[2020-07-12] MEDS ORDERED: XARELTO15 MG PO (07:58)
[2020-07-12] MEDS ORDERED: SPIRONOLACTONE100 M1 PO (07:58)
[2020-07-12 08:15] VITALS: BP 177/82
[2020-07-12 12:00] VITALS: BP 154/58
--- NOTE | 2020-07-12 14:22 | NUR ---
ASSESSMENT CHARTED. PT ALERT AND ORIENTED. DENIED HAVING PAIN OR DISCOMFORT. SEEN BY DR. NEWMAN. ORDERS GIVEN TO DISCHARGE PT TO HOME. DISCHARGE INSTRUCTIONS GIVEN TO PT. PT VERBERLISED UNDERSTANDING.
--- NOTE | 2020-07-17 15:58 | NUR ---
Call rec'd from Katya at Dr. Frye's office requesting dc summary and clarification on if we had arranged hh at mt. DC summary faxed to their office at [phone]. No hh setup or ordered at mt. Katya indicates that the pt is agreeable and they will arrange for RN/PT evals per Bjorn BRAGG.
--- NOTE | 2020-07-24 12:04 | HC ---
[facility] [place] [address] [place] [address] CONSULTATION Name: DALILA POWELLRED Room #: [address] [place] [address] [place] M.R.#: [id number] Admission: 07/09/20 Attend Phys: Denver Giles MD Discharge: 07/12/20 Date of : 30 Report #: [id number] THIS REPORT FOR: cc: Travis Frye MD, Eric K. MD Khosla, Parveen K. MD ~ CC: Travis Giles DATE OF SERVICE: 07/09/2020 HISTORY OF PRESENT ILLNESS: This 89-year-old female patient who was evaluated by me for determining any neurological etiology for any dizziness. The patient says that she had trigeminal neuralgia for a long period of time. She was in the process of switching her medication from gabapentin to Tegretol. She has taken Tegretol in the past, but then she was switched to gabapentin and then she is being switched back to Tegretol. She saw a neurosurgeon, Dr. Dickinson a long time ago and he wanted to do surgery on that and the patient refused surgery. She has been handling it reasonably well. She also gave a history of neuropathy, but I do not know how established the diagnosis is. REVIEW OF SYSTEMS: A 14-point review of system was carried out. This patient has a history of hypertension. The medications, she has not been taking it properly. She is on anticoagulation and she also missed a dose of that. She does have a longstanding history of atrial fibrillation. In fact, she has been seen by Cardiology during this admission. A 14-point review of system was carried out and it is positive as described above. PAST MEDICAL HISTORY: Positive for trigeminal neuralgia. FAMILY HISTORY: Unremarkable. SOCIAL HISTORY: She does not drink alcohol or smoke. REVIEW OF SYSTEMS; Also positive for a lumpectomy and a closed head injury in the past, chronic kidney disease, vertigo, angioplasty, bilateral cataracts, and bilateral knee replacement. PHYSICAL EXAMINATION: Indicates she is alert. She is responsive. She is able to follow simple command. She is oriented. Her speech looks intact. Cranial nerve examination 2-12 was unremarkable. She moves all 4 extremities well and strength looks unremarkable. Her position sense was intact on both sides. Reflexes were symmetrical. She did fairly well with elfimb-ta-qelc. I could not look at the patient's fundus. There is no meningeal sign. Blood pressure is 177/95, respirations 18, pulse is 66, temperature is 98.2. Cardiac examination is positive for atrial fibrillation. No respiratory difficulty. [facility] [address] [place] [address] CONSULTATION Name: [facility] Room #: [facility] IN .R.#: [id number] Admission: 07/09/20 Attend Phys: Denver Giles MD Discharge: 07/12/20 Date of : 30 Report #: [id number] She has no edema. Pulses are somewhat difficult to feel. She is a well-built individual. She does not have any hearing or issues with vision. She does not have any thyroid mass. LABORATORY DATA: Her white count is 7.1. Her potassium is only 2.3. Her kidney function indicated GFR low. Her TSH is also low, but B12 is normal. She had an MRI of the brain, MRA of the head and a carotid Doppler and CT scan. They were all reviewed and they were all unremarkable. IMPRESSION: It is unlikely that there is any neurological etiologies for the patient's dizziness or generalized weakness. I will suggest continuing to work up for systemic causes. Tegretol can cause some dizziness and fatigue, but she has taken it in the past and she does not feel that is the cause for it and she can address that with her primary. She should have some further workup and that workup should include the workup for neuropathy to establish the diagnosis with more certainty, but that needs to be done as an outpatient. Neurologically, I do not have much to add and I will sign off and please call if there is any question about this patient. <ELECTRONICALLY SIGNED> By: Kel Biswas MD 07/24/20 1204 1735 0202 Kel Biswas MD /nt
== END 2020-07-12 14:29 | disposition home or self-care (01) | DRG 291 ==
LOC: ER 10:27 → 2N 14:01 → EROBS 14:01 → 2N 14:10
PROVIDERS: Emergency Medicine; ADMIT Internal Medicine; ATTEND Internal Medicine
DX: I13.0 Hypertensive heart and chronic kidney disease with heart failure and stage 1 through stage 4 chronic kidney disease, or unspecified chronic kidney disease (principal); I50.31 Acute diastolic (congestive) heart failure; I48.21 Permanent atrial fibrillation; J98.11 Atelectasis; I16.0 Hypertensive urgency; E87.6 Hypokalemia; G50.0 Trigeminal neuralgia; I48.91 Unspecified atrial fibrillation; N18.30 Chronic kidney disease, stage 3 unspecified; K21.9 Gastro-esophageal reflux disease without esophagitis; Z96.653 Presence of artificial knee joint, bilateral; E78.00 Pure hypercholesterolemia, unspecified; E03.9 Hypothyroidism, unspecified; E11.22 Type 2 diabetes mellitus with diabetic chronic kidney disease; I25.10 Atherosclerotic heart disease of native coronary artery without angina pectoris; I87.2 Venous insufficiency (chronic) (peripheral); I35.0 Nonrheumatic aortic (valve) stenosis; E11.42 Type 2 diabetes mellitus with diabetic polyneuropathy; E78.5 Hyperlipidemia, unspecified; E83.42 Hypomagnesemia; Z66 Do not resuscitate; F41.9 Anxiety disorder, unspecified; M62.84 Sarcopenia; N39.41 Urge incontinence; K59.00 Constipation, unspecified; I27.20 Pulmonary hypertension, unspecified; I07.1 Rheumatic tricuspid insufficiency; Z79.01 Long term (current) use of anticoagulants; Z85.3 Personal history of malignant neoplasm of breast; Z90.49 Acquired absence of other specified parts of digestive tract; Z88.8 Allergy status to other drugs, medicaments and biological substances; Z98.42 Cataract extraction status, left eye; Z98.41 Cataract extraction status, right eye; Z90.710 Acquired absence of both cervix and uterus
CPT/HCPCS: 10081

== ENCOUNTER → 2020-07-19 | Outpatient (CLI) | payer OTHER, BC ==
[~2020-07-19] MED LIST changes: +ACIDOPHILUS CA1 EACH PO; +CLONAZEPAM 0.50.5 M1 PO; +EDARBYCLOR 40-1 EAC1 PO; +EYE HEALTH ADU1 EACH PO; +K-DUR 20 MEQ T20 MEQ PO; +MAPAP500 MG PO; +MECLIZINE HCL25 M1 PO; +MULTI FOR HER1 EAC2 PO; +NEURONTIN300 MG PO; +NORVASC5 MG PO; +SPIRONOLACTONE100 M1 PO; +XARELTO15 MG PO
== END ==
LOC: SJCVCIMAG 07-15 09:11
PROVIDERS: ATTEND Internal Medicine Cardiovascular Disease
DX: R94.31 Abnormal electrocardiogram [ECG] [EKG] (principal); I25.10 Atherosclerotic heart disease of native coronary artery without angina pectoris; I48.21 Permanent atrial fibrillation; I10 Essential (primary) hypertension; E78.5 Hyperlipidemia, unspecified; D68.59 Other primary thrombophilia; I87.2 Venous insufficiency (chronic) (peripheral); I35.0 Nonrheumatic aortic (valve) stenosis; E78.00 Pure hypercholesterolemia, unspecified; R00.0 Tachycardia, unspecified

== ENCOUNTER 2020-08-28 15:35 | Inpatient (IN) | payer OTHER, BC ==
[~2020-08-28] VITALS: Ht 167.6 cm; Wt 81.5 kg
[~2020-08-28 15:35] MED LIST changes: +BENICAR20 MG PO; +CHLORTHALIDONE25 MG PO; +HYDRALAZINE 5050 MG PO; +LOSARTAN POTASS50 MG PO
[2020-08-28 17:56] VITALS: BP 176/90
--- NOTE | 2020-08-28 20:23 | NUR ---
89 yo admitted from [address] [place] d/ concerns she needed additional help to manage her anxiety and assistance with care to continue living independently. Two recent hospitalizations for HTN including overnight in CCU yesterday. Per report, pt alert and orientated X4 with some confusion and concerns whether she is taking her meds at home. Pt arrived on unit at 1650 with PLANT DIRECTOR/stapler coil unit but became upset stating she was told she was being admitted to [facility] instead of [facility]. She initially refused to be admitted. Dr. Fuller notified who then consulted with Dr. Morel and 2N case resolution specialist. Pt. continued to refuse to sign consents until presented with need to do [address] Fuller. She signed consent at about 1800 continuing to express her unhappiness at being admitted to [facility] instead of rehab. Moved to private room per her request. Pt. alert and orientated X4 with exception of consistently thinking it was a different day. She also kept referring to being admitted to [facility] "4-5 yrs ago" and describing details of that hospitalization. She was also able to relay specific details of her medical hx (HgbA1C for example) but then did not mention any of her medical problems listed in provider notes. When told that she was jail pt of Dr. Saxena she stated, "Thank you for reminding me of that." and mentioned Afib. Much later in intake questions she asked, "So how is [facility] supposed to help me with my anxiety?" as if recalling that she needed help with that issue. Listed medical issues: Afib, HTN, peripheral neuropathy, venous insufficiency, mild aortic stenosis, hypokalemia, anxiety and questionable dementia, pulmonary HTN. Calm but tearful at times, cooperative and compliant after consents signed. Also mentioned at end of intake that she had 2 friends who were her DPOAs but were currently not helping her make decisions. Ambulating around unit with steady gait with walker. Breath sounds clear. Irregular HR auscultated. Color pale pink with brisk capillary refill and palpable peripheral pulses +1/+4. Independent with voiding, reportedly continent. Active bowel sounds over soft, rounded abdomen. States she had a BM yesterday. No skin issues noted.
[2020-08-29 00:05] VITALS: BP 194/92
--- NOTE | 2020-08-29 03:55 | NUR ---
Assumed care of patient this pm shift. Patient in good spirits, calm and cooperative. Patient is alert and oriented x3. Patients affect is somewhat blunted. Patient takes medicaitons whole with thin fluids. Patient ambulates with a walker. Gait is even and well balanced. Patients assessment shows no signs of acute distress. Patients blood pressure elevated at 194/92 prior to med pass. We will continue to monitor patient per hospital policy.
[2020-08-29 06:27] LABS: CALCIUM 9.5 mg/dL (8.5-10.1); CREATININE 0.9 mg/dL (0.6-1.0); POTASSIUM 3.4 mmol/L (3.5-5.1)
[2020-08-29 09:30] VITALS: BP 191/102
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
--- NOTE | 2020-08-29 19:39 | NUR ---
0700 ASSUMED CARE OF PATIENT, PATIENT IN BED AT THAT TIME. PATIENT CALM AND COOPERATIVE NO SI/HI. ALERT AND ORIENTED X3. PATIENT AMB WITH WALKER WITH STEADY GAIT. CONFUSED AT TIMES. MEDICATION TAKEN WHOLE WITHOUT DIFFICULTY. BS ACTIVE, LS CLEAR.
[2020-08-29 20:30] VITALS: BP 180/95
[2020-08-29 20:33] VITALS: BP 180/95
[2020-08-29 22:15] VITALS: BP 137/57
--- NOTE | 2020-08-30 01:41 | NUR ---
PATIENT HAS BEEN UP IN HALLS WITH WALKER RIGOBERTO. SHE DID NOT HAVE HS SNACK. SHE WENT TO BED EARLY. SHE IS A/0X3-4 BUT FORGETFUL. SHE DENIES SI/HI/AVH. RIGOBERTO WE TALKED AT LENGTH AND SHE STATES SHE WANTS TO GO LIVE IN A PENITENTIARY. SHE STATES SHE KNOWS HER MEMORY IS FAILING AND SHE CAN'T REMEMBER MUCH OF LAST 10 YEARS. SHE STATES JUST 3 YEARS AGO SHE WAS WALKING 2 MILES A DAY AND USING A ROW MACHINE. SHE STATES AFTER SHE HAD A UTI THAT SHE HAS JUST DECLINED AND NOT BEEN ABLE TO CONTINUE SHE WAS. SHE STATES SHE NEEDS TO BE TAKEN CARE OF NOW BECAUSE RESPONSIBILITIES AND REMEMBERING MEDS IS GETTING TO BE TOO MUCH AT HOME. SHE WOULD LIKE THE DR AND SW TO HELP HER WITH THIS. PATIENT TOOK HER MEDS WHOLE. SHE IS INQUISITIVE AND ASKED WHAT EACH PILL WAS SHE WAS TAKING BEFORE SHE WOULD TAKE IT. SHE DENIES PAIN. PATIENT STATES SHE HAD BM TODAY. SHE IS UNSTEADY ON HER FEET WITH WALKER AND IS THEREFORE A FALL RISK. BED IN LOW POSITION AND BED ALARM IS ON. ROUTINE ROUNDING TO ASSESS SAFETY AND STATUS OF PATIENT.
[2020-08-30 09:50] VITALS: BP 162/72
--- NOTE | 2020-08-30 13:27 | NUR ---
CARLTON recieved a call from Fifi Atkins who reported to be patients DPOA. Ms. Atkins reported that patient does not have mental health issues and does not belong in this facility. She reported patient is looking for a rehab that will help her get stronger. CARLTON informed Ms. Atkins that she would need to fax confirmation that she was the DPOA for the patient before any information could be discussed with her. CARLTON provided Ms. Atkins with the fax number to send requested documents.
--- NOTE | 2020-08-30 15:32 | NUR ---
Patient request her check book from security to write a check for her rent. Patient placed the check in a envelope and wrote an address to her rental office. SW mailed envelope.
--- NOTE | 2020-08-30 15:41 | NUR ---
PATIENT HAS BEEN UP, AND OUT ON THE UNIT, AMBUILATES WITH ASSIST OF ROLLER WALKER, GAIT SLIGHTLY UNSTEADY. PATIENT IS EATING MEALS, AND DRINKING FLUID WELL. PATIENT IS ALERT, AND ORIEBTED X 3-4, HAS PERIODS OF FORGETFULNESS, AND CONFUSSION. SHE IS CALM, COOPERATIVE WITH CARE. PATIENT DENIES SUICIDAL/HOMICIDAL IDEATION, SHE DENIES DEPRESSION, WAS CONCERNED ABOUT HER BLOOD PRESSURE ISSUES "MY SISTER OF HYPERTENSION DEMENTIA, I THINK I AM HEADING THAT WAY, I HAVE ACCEPTED IT". PATIENT'S GOAL TODAY IS "TO SEE JONATHAN ONE OF THESE DAY BUT, NOT TODAY". SHE TOOK ALL MEDICATION WHOLE WITHOUT DIFFICULTY. PATIENT PARTICIPATES IN GROUP THERAPY. AFFECT IS EUTHYMIC, MOOD IS DEPRESSED, NO SIGN OF ACUTE DISTRESS NOTED AT THIS TIME, WILL MONITOR FOR SAFETY.
[2020-08-30 20:01] VITALS: BP 148/70
--- NOTE | 2020-08-30 23:03 | NUR ---
PT LAYING QUIETLY IN BED WITH EYES CLOSED DURING SHIFT CHANGE. NO SIGNS OF DISTRESS NOTED. PT A&O X4 DURING MED PASS WITH NO CONFUSION NOTED. PT DENIES PAIN. SHE DECLINED TO TAKE CARBAMEZAPINE AT THE SAME TIME GABAPENTIN HS STATING SHE TAKES IT FOR NERVE PAIN AND THE LATTER TAKES CARE OF THE PAIN. LUNGS CTA RADHA. HEART SOUNDS NORMAL. BOWEL SOUNDS PRESENT X4 QUADS OVER SOFT, ROUND, NON-TENDER ABDOMEN. SKIN CDI WITH SOME BRUISES. NO EDEMA NOTED, DENIES NUMBNESS AND TINGLING ON HER EXTREMITIES. NO SIGNS OF SI/SH OBSERVED. WILL CTM.
[2020-08-31 07:39] VITALS: BP 168/95
--- NOTE | 2020-08-31 11:43 | NUR ---
PATIENT CARE ASSUMED AT 0700 - ALERT AND ORIENTED TIMES FOUR. ABLE TO RESPOND ADEQUATELY TO QUESTIONS. STATED LIVING ON OWN AND AWARE OF ADDITIONAL HELP NEEDED. PATIENT ABLE TO MAKE NEEDS KNOWN. REQUESTED PUZZLES AND EXTRA ACTIVITIES TO KEEP HER BUSY -STATED HARD TO COMMUNICATE WITH MANY PEOPLE HERE. FORGETFUL AT TIMES AND ADMITS TO THIS. EDICATION COMPLIANT - GOOD APPETITE. AMBULATORY WITH WALKER - PLEASANT AND SOCIAL -
[2020-08-31 20:08] VITALS: BP 165/80
[2020-08-31 21:33] VITALS: BP 165/80
--- NOTE | 2020-09-01 04:19 | NUR ---
Assumed care of patient this pm shift. Patient calm and cooperative, alert and oriented x4. Forgetful. Affect is scared as patient is concerned about getting the coronavirus. Meds taken whole with thin fluids. Patient ambulates without assistance. Falls precautions in place. Client denies hi/si and states that she would like to get into an assisted living. No signs or symptoms of acute distress. Patient also concerned about getting a good nights sleep. We will continue to monitor per hospital policy.
[2020-09-01 09:07] VITALS: BP 167/89
[2020-09-01 11:36] VITALS: BP 167/89
--- NOTE | 2020-09-01 18:38 | NUR ---
Took over patient care at 0700, patient was in bed. she was calm and co-operative with care. patient ate all meals. patient had concerns about testing positive for COVID. patient result came back negative. patient goal was to take a bath today. She took a bath with standby assist. She was educated about her medication and the COVID result.
[2020-09-01 19:57] VITALS: BP 159/82
--- NOTE | 2020-09-02 03:01 | NUR ---
09-01-30 CARE TRANSFERRED 1899. PT AAOX4, VSS, RR EVEN AND NONLABORED ON RA, PT DENIES SI/HI AND PAIN. PT PRESENT ANXIOUS ABOUT COVID, PT REMAINS CALM AND COOPERATIVE. DURING MEDICATION ADMIN PT REFUSED CARBAMAZEPINE STATING THAT THIS MEDICATION CAN CAUSE HER STOMACH PAIN, PT HAD NO OTHER DIFFICULTIES. PT BED WAS ADJUSTED FOR COMFORT. ZERO S/S OF ACUTE DISTRESS, WILL CONTINUE TO MONITOR PER [facility] PROTOCOL.
[2020-09-02 07:34] VITALS: BP 176/99
--- NOTE | 2020-09-02 08:57 | NUR ---
CARLTON received a call from Fatemeh Rocha ([phone] or [phone]) in regards to pt. She identified as also pt's DPOA. She said pt called and said she would like to go today. Fatmeeh did not know pt had been admitted on a psych basis. CARLTON provided her the update. She acknowledged that she too believes pt needs a higher level of care. CARLTON told her she will discuss pt in tx team and then call her back. PLATE STACKER contacted [employer] and asked them to screen pt for Medicaid. SW team will continue to follow pt during her stay on this unit.
--- NOTE | 2020-09-02 17:06 | NUR ---
ASSUMED PATIENT CARE AT 0700. PATIENT WAS SLEEPING IN HER BED. PATIENT WAS CALM COOPERATIVE WITH CARE AND MEICATION. SHE ASKED QUESTIONS ABOUT HER MEDICATION. PATIENT QUESTIONS WERE CLARIFIED. PATIENT STATED THAT HER CONCERNS WAS TO PAY HER BILLS AND RENT TODAY. PATIENT GOALS WAS TO GO HOME TODAY. SHE MADE PHONE CALLS REGARDING HER DISCHARGE TO HER PRIMARY CARE DOCTOR, THIS WAS LATER CLARIFIED BY THE DOCTOR. PATIENT STATED THAT SHE GETS WEAK AFTER TAKING HYDRALAZINE. ORTHOSTATIC BP WAS DONE- LYING B/P:165/74,P-80. SITTING POSITION: 175/80, P-78. STANDING B/P: 157/85, P-82.
[2020-09-02 19:10] VITALS: BP 129/59
--- NOTE | 2020-09-03 02:11 | NUR ---
Assumed care on 09/02/20 @ 19:30, retired to bed early and had to be awakened to administer HS meds. Cooperative with meds, taking them whole with water, then returned to sleep, resting quietly in bed with eyes closed, respirations even and unlabored.
[2020-09-03 08:10] VITALS: BP 154/88
--- NOTE | 2020-09-03 17:39 | NUR ---
PATIENT VITALS TAKEN AT DINNERTIME AND WERE 176/83 WITH PULSE OF 81. 6.25 MG. OF COREG ADMINISTERED ALONG WITH HER BLOOD THINNER.
[2020-09-03 19:30] VITALS: BP 116/71
--- NOTE | 2020-09-04 05:54 | NUR ---
09-03-20 CARE TRANSFERRED 1900 OBSERVED PT SITTING IN DAY ROOM WATCHING TV. PT AAOX4, VSS, RR EVEN AND NONLABORED ON RA, PT DENIES ANY PAIN AND SI/HI. PT PRESENT ANXIOUX AND REPORTS THAT SHE IS LOOKING FORWARD TO A NEW PLACE, BUT ALSO ANXIETY OVER NEW PLACE. DURING MEDICATION PT REFUSED CARBAMAZEPINE BUT HAD NO DIFFICULTIES. ZERO S/S OF ACUTE DISTRESS NOTED, PT WILL CONTINUE TO BE MONTIOR PER [facility] PROTOCOL.
[2020-09-04 09:02] VITALS: BP 172/86
--- NOTE | 2020-09-04 11:26 | NUR ---
RT Progress Note- Overall, Raiza has been an active participant in recreation therapy groups, though she keeps to herself during free time. Raiza is often focused on future endevours which occupy this time. Raiza displays intermittent confusion, but is able to cognitively engage in groups and with patients and staff. SLITTER CUT OFF OPERATOR will encourage continued participation.
--- NOTE | 2020-09-04 12:40 | NUR ---
PATIENT HAS BEEN UP, AND OUT ON THE UNIT, AMBULATES WITH ASSIST OF ROLLER WALKER, GAIT IS SLIGHTLY UNSTEADY. PATIENT TOOK ALL MEDICATION WHOLE WITHOUT DIFFICULTY. SHE IS EATING MEALS, AND DRINKING FLUID WELL. PATIENT DENIES SUICIDAL/HOMICIDAL IDEATION, SHE RATED DEPRESSIOIN 7-8/10, ANXIETY 10/10. DR. MCCARTY NOTIFIED, ONE TIME ORDER FOR CLONAZEPAN 1MG NOTED, SAME GIVEN AT 0945HRS, WITH POSITIVE EFFECT. PATIENT C/O CONSTIPATION, MILK OF MAGNESIA 10ML GIVEN AT 1234 HRS, AWAITING RESULT. PATIENT IS CALM, COOPERATIVE WITH CARE. SHE DENIES HAVING PHYSICAL PAIN, AFFECT IS FLAT/BLUNTED, MOOD IS DEPRESSED. NO SIGN OF ACUTE DISTRESS NOTED, WILL MONITOR FOR SAFETY.
--- NOTE | 2020-09-04 13:59 | NUR ---
CARLTON followed up on referral to [facility]. No answer. CARLTON left [facility] for admissions. CARLTON sent referrals for assisted living to the following: [facility], [facility], [facility], [facility], [facility], [facility], [facility], and [facility]. SW team will continue to follow pt during her stay on this unit.
[2020-09-04 19:31] VITALS: BP 134/89
[2020-09-04 20:47] VITALS: BP 134/89
--- NOTE | 2020-09-05 04:17 | NUR ---
Assumed care at 1900 hours. Patient in good spirits, calm and cooperative. Alert and oriented x4. Takes medications whole with thin liquids. Falls precautions in place. Covid pcr done this evening as rule out. Affect is euthymic. Assessment shows no signs of acute distress. Vital signs stable. Patient is concerned with placement at this time and cost. We will continue to monitor per hospital policy.
--- NOTE | 2020-09-05 09:00 | NUR ---
SW received calls from Noa with [facility] ([phone]) and Tawanna with [facility] ([phone]) about referrals sent on pt. SW called both back. No answer. SW left msgs for both. SW team will continue to follow pt during her stay on this unit.
[2020-09-05 09:46] VITALS: BP 167/76
--- NOTE | 2020-09-05 15:17 | NUR ---
CHILDREN'S LIBRARIAN met with pt 1;1 via in room phone. Patient stood at door and was observed becoming tearful. She stated, "I just feel so isolated. I do feel better now that I know about my phone." She was provided a packet that contained paper activities and was thankful for this. CHILDREN'S LIBRARIAN will call patient again tomorrow.
--- NOTE | 2020-09-05 19:55 | NUR ---
Alert and orientated X4, denies SI/HI. Fearful of Covid this am, wanting to make arrangements with friends for placement. Spent most of day in room watching TV and talking on phone. Calm, pleasant and compliant. Breath sounds clear. No s/o resp distress. Reg HR auscultated. Color pink with brisk capillary refill and palpable peripheral pulses. Independent with voiding. Active bowel sounds over soft, rounded abdomen. Reg, steady gait with walker.
[2020-09-05 20:00] VITALS: BP 126/66
--- NOTE | 2020-09-06 05:26 | NUR ---
Assumed care of pt @ 1900. Pt calm et cooperative with pleasant demeanor this shift. Took medications whole without difficulty. VSWNL. Health assessment with no abnormalities noted at present time. Denies SI/HI/AVH at present time. Ambulation not observed this shift. Currently resting in bed with eyes closed. Will continue to monitor per unit protocol.
[2020-09-06 07:25] VITALS: BP 108/65
[2020-09-06 09:14] VITALS: BP 108/65
--- NOTE | 2020-09-06 11:22 | NUR ---
CARLTON received a call from Heidi with [facility] stating that pt clinically checks out but they needed more documentation. She believes she will be able to accept pt. CARLTON faxed to Heidi RICARDO [id number] and updated notes on pt. CARLTON received a call from Jhoana stating that he would like to accept pt but cannot get a hold of Fatemeh Rocha. CARLTON contacted him and left a msg with both of the numbers she has for Fatemeh Rocha. She also asked Jhoana to contact her back so she can provide an update. SW team will continue to follow pt during her stay on this unit.
--- NOTE | 2020-09-06 16:18 | NUR ---
Alert and orientated X4 with some confusion at times. Denies SI/HI, focused on discharge. Mildly frustrated at times. States she feels she has lost control of her life. Ambulates with steady gait with walker in room. Breath sounds clear, no s/o resp distress. Irregular HR auscultated. Color pink with brisk capillary refill and palpable peripheral pulses. Independent with voiding. Active bowel sounds over soft, rounded abdomen. Discharge instructions given to pt and then contacted her DPOA and friend Fatemeh Santanagerry for consent to transfer to [facility]. Transported via [email or web address] per at 1530 after report called to Guille Iqbal. No s/o distress upon discharge.
--- NOTE | 2020-09-08 11:13 | D ---
[facility] [place] [address] DISCHARGE SUMMARY Name: SHANNA POWELL Room #: 222-P [facility] IN M.R.#: [id number] Admission: 08/28/20 Attend Phys: Phi Fuller DO Discharge: 09/06/20 Date of : 30 Report #: [id number] THIS REPORT FOR: cc: Travis Frye MD,Travis Fuller,Phi Mak DO ~ CC: Phi Frye DATE OF SERVICE: 09/06/2020 INPATIENT PSYCHIATRIC DISCHARGE SUMMARY ATTENDING PSYCHIATRIST: Phi Fuller DO. 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 Additional comorbidities include atrial fibrillation, on Xarelto; hypothyroidism, on Synthroid, hypokalemia on Aldactone and scheduled potassium chloride, also history of congestive heart failure. The patient also noted to have chronic kidney disease stage 3. DISCHARGE PLAN: The patient is being discharged to the [facility] for care for the COVID-19 infection. DISCHARGE MEDICATIONS: Levothyroxine 50 mcg oral daily for hypothyroidism, gabapentin 300 mg p.o. t.i.d., multivitamin p.o. daily, carvedilol 6.25 mg p.o. b.i.d. for hypertension, Xarelto 15 mg p.o. daily with dinner for AFib, amlodipine 10 mg b.i.d. for hypertension, spironolactone 50 mg p.o. daily, for potassium replacement, potassium chloride 40 mEq p.o. daily, hydralazine 50 mg p.o. 3 times a day, Benicar 40 mg p.o. daily. The patient will receive Psychiatric and medical care at the receiving facility. LABORATORY DATA: Significant laboratory this admission are as follows: The patient was positive for COVID-19 by PCR. She was checked after there was a likely exposure on her nursing unit. Other laboratories completed this admission on 08/27/2020, H and H 11.9 and 37.2, white count 6.9, platelet count 203. Coags done on 08/27/2020, PT 16.1, INR 1.6. Chemistries done on 08/29/2020, sodium 142, potassium 3.4, chloride 103, bicarbonate 27, anion gap 12, BUN 18 , creatinine 0.9, estimated GFR 59, glucose 93. Hemoglobin A1c 5.9, calcium 9.5, total bilirubin 0.6, AST 29, ALT 30. Troponin less than 0.06. No other significant labs. Albumin was 4.1. Toxicology was Tegretol level was 2.7 this admission, which was subtherapeutic, for mood stability anyways. it was prescribed for [address] [address] DISCHARGE SUMMARY Name: SHANNA POWELL Room #: 222-P [facility] IN M.R.#: [id number] Admission: 08/28/20 Attend Phys: Phi Fuller, Discharge: 09/06/20 Date of : 30 Report #: [id number] trigeminal neuralgia to note. IMAGING THIS ADMISSION: None. MICROBIOLOGY: None. REASON FOR ADMISSION: Back on 08/28/2020 an 89-year-old female discharged recently from [facility] and she was allegedly taking her medications incorrectly, ability to care for self was in question. There may also be impairment of her caregiver Daniel, who is her significant other. HOSPITAL COURSE: The patient had a brief medical admission, brought [facility] to [facility]. The patient had been living independently in an apartment. There was a question of her DPOA, after the finding out who her DPOA was, it turned out to be Fatemeh Hernandez, we spoke with her. The patient has a number of deficits consistent with major neurocognitive disorder. I believe the patient needs at least assisted living level of care. We were planning on discharging her to assisted living and things declined with the COVID infection. Therefore, the patient was moved to our medical isolation area to be kept under myself. She was quite stable down there. No chemical or physical restraints or other problems like that. PHYSICAL EXAMINATION: VITAL SIGNS: On the day of discharge are as follows: Pulse 67, BP 108/65, temperature 98.7, O2 sat 93%. MUSCULOSKELETAL: Normal gait and station. MENTAL STATUS EXAMINATION: This is a well-developed, fairly nourished female, appearing slightly younger than stated age. Attention fair. Concentration limited. Speech is normal rate, volume and tone. Thought process is linear and goal directed. Thought content focused on discharge. Slight psychomotor agitation. No psychomotor retardation. Denied SI or HI. Denied auditory, visual, or tactile hallucinations. Mood and affect was anxious, congruent, constricted. Denied SI or HI. Memory not formally tested today. Insight limited. Judgment limited. Fund of knowledge below average. PROGNOSIS: For this patient is guarded and will depend after her skilled stay for the COVID if she is in a supportive environment. She will need assistance [facility] [address] [place] [address] DISCHARGE SUMMARY Name: SHANNA POWELL Room #: 222-P [facility] IN M.R.#: [id number] Admission: 08/28/20 Attend Phys: Phi Fuller DO Discharge: 09/06/20 Date of : 30 Report #: [id number] with things like medication management, transportation, being properly nourished and some prepping prompting with ADLs such as showering and bathing. <ELECTRONICALLY SIGNED> By: Phi Fuller DO 09/08/20 [id number] Phi Fuller DO /nt
== END 2020-09-06 15:30 | DRG 56 ==
LOC: SBH 15:35 → SICU 09-05 07:02
PROVIDERS: ADMIT Psychiatry & Neurology Psychiatry; ATTEND Psychiatry & Neurology Psychiatry
DX: G30.9 Alzheimer's disease, unspecified (principal); F01.50 Vascular dementia, unspecified severity, without behavioral disturbance, psychotic disturbance, mood disturbance, and anxiety; U07.1 COVID-19; N18.30 Chronic kidney disease, stage 3 unspecified; I13.0 Hypertensive heart and chronic kidney disease with heart failure and stage 1 through stage 4 chronic kidney disease, or unspecified chronic kidney disease; F41.8 Other specified anxiety disorders; Z20.828 Contact with and (suspected) exposure to other viral communicable diseases; F02.80 Dementia in other diseases classified elsewhere, unspecified severity, without behavioral disturbance, psychotic disturbance, mood disturbance, and anxiety; I48.91 Unspecified atrial fibrillation; E03.9 Hypothyroidism, unspecified; E87.6 Hypokalemia; I50.9 Heart failure, unspecified; I16.0 Hypertensive urgency; E11.22 Type 2 diabetes mellitus with diabetic chronic kidney disease; K21.9 Gastro-esophageal reflux disease without esophagitis; M79.7 Fibromyalgia; Z96.1 Presence of intraocular lens; Z96.653 Presence of artificial knee joint, bilateral; Z85.3 Personal history of malignant neoplasm of breast; Z79.01 Long term (current) use of anticoagulants; Z90.49 Acquired absence of other specified parts of digestive tract; Z98.42 Cataract extraction status, left eye; Z98.41 Cataract extraction status, right eye; Z90.710 Acquired absence of both cervix and uterus; Z88.8 Allergy status to other drugs, medicaments and biological substances
CPT/HCPCS: 10880; 15000